=== PATIENT | male | born 1955 | race Caucasian/White ===

== ENCOUNTER 2016-05-02 07:36 | Outpatient (CLI) | payer OTHER | END 2016-05-02 07:37 | disposition home or self-care (01) | DX: Z79.899 Other long term (current) drug therapy (principal); I10 Essential (primary) hypertension; E78.5 Hyperlipidemia, unspecified; E78.1 Pure hyperglyceridemia; R74.0 Nonspecific elevation of levels of transaminase and lactic acid dehydrogenase [LDH]; Z12.5 Encounter for screening for malignant neoplasm of prostate ==

== ENCOUNTER 2016-09-14 10:10 | Outpatient (CLI) | payer OTHER | END 2016-09-14 10:11 | disposition home or self-care (01) | LOC: LAB.WCP 10:10 | PROVIDERS: ATTEND Family Medicine | DX: R10.9 Unspecified abdominal pain (principal) | CPT/HCPCS: 87086 ==

== ENCOUNTER 2019-12-26 08:20 | Outpatient (CLI) | payer MEDICARE, OTHER | END 2019-12-26 23:59 | disposition home or self-care (01) | LOC: LAB.R 08:20 | PROVIDERS: ATTEND Physician Assistant Medical | DX: L72.3 Sebaceous cyst (principal) | CPT/HCPCS: 87070; 87181; 87205 ==